=== PATIENT | male | born 1955 | race Hispanic/Latino ===

== ENCOUNTER 2021-09-30 01:25 | Emergency (ER) | payer MEDICARE ==
[~2021-09-30] VITALS: Ht 165.1 cm; Wt 81.6 kg
[2021-09-30] MEDS ORDERED: CEFTRIAXONE 1 GM VIAL ONE (03:00)
[2021-09-30] MEDS ORDERED: SODIUM CHLORIDE 0.9% 1000ML 1,000 ML ONE (03:00)
[2021-09-30] MEDS ORDERED: AUGMENTIN 500-1 EACH PO (03:22)
[2021-09-30] MEDS ORDERED: BACTRIM DS TAB1 EACH PO (03:22)
[2021-09-30] MEDS ORDERED: SODIUM CHLORIDE 0.9% 1000ML 1,000 ML IV ONE (04:30)
[2021-09-30] MEDS ORDERED: CEFTRIAXONE 2 GM in SODIUM CHLORIDE 0.9% 100 ML IV ONE (04:30)
== END 2021-09-30 04:28 | disposition home or self-care (01) ==
LOC: FSED 03:19
DX: N10 Acute pyelonephritis (principal); Z20.822 Contact with and (suspected) exposure to COVID-19
CPT/HCPCS: 80053; 81003; 85025; 87040; 87086; 99283; J0696; J7030; U0002; 87186